=== PATIENT | female | born 1980 | race Caucasian/White ===

== ENCOUNTER 2023-08-20 04:06 | Day surgery (SDC) | payer OTHER, SELFPAY ==
[2023-08-07 15:23] VITALS: BMI 32.5
--- NOTE | 2023-08-07 15:30 | PC.NURSE ---
Report to the Outpatient Waiting Room, entrance under the green pavilion located off [facility], at time _0600_ on date _[id number]_. Planned Procedure Time: _0730_. Time changes happen often and if your time is changed the preop area will call you the afternoon before. - You and your visitor will be asked to self-screen and do not enter if you have any COVID symptoms. - A mask is optional within the hospital at this time. Patients may have clear liquids (water, carbonated beverages, clear teas, apple juice) until 3 hours prior to surgery with a maximum of 20 ounces. - No food from midnight until time of surgery Take the following medications with a SIP of water the morning of surgery: __Bupropion DO NOT STOP ANY OF YOUR OTHER PRESCRIPTION MEDICATIONS PRIOR TO SURGERY ?EXCEPT THE FOLLOWING Medications to discontinue per physician Calcium and Magnesium Date to take last rqsl___14-19-2023 Please no make-up, nail gibraltarian, hairspray, perfume, deodorant, or body powder the day of surgery. No jewelry (including any body piercings) or valuables the day of surgery, leave them at home. Please take a shower or bath the night before, or the morning of, surgery with an antibacterial soap. Wear comfortable, loose fitting clothing. - Jewelry must be removed prior to entering the operating room. Rings and piercings that are not removed may be cut off. - The hospital will not accept responsibility for valuables. - Please leave all valuables, including medications, at home the day of surgery. If you are going home after surgery, a licensed electric pile driver operator must drive you home. - NO public transportation without another adult if you receive anesthesia. - We recommend that an adult stay with you for 24 hours following discharge. - We also recommend that you do not drive, make important decision, drink alcoholic beverages, or take any drugs that were not prescribed by your health care provider for at least 24 hours after your discharge time. Follow any additional instructions given to you from your surgeon. If you or anyone in your household have experienced Covid symptoms in the past week, please notify your surgeon or the nurse liaison at the phone number below for possible testing. Telephone instructions given to __Niki__and asked if any additional questions and then verbalized understanding. Patient advised to call surgeon office or pre surgery nurse liaison [phone] if any additional questions.
[2023-08-20] VITALS (9 sets, daily range): BP systolic 109–149; BP diastolic 70–100; PULSE 76–93; RESP 12–20; TEMP 36.2–36.9; O2SAT 96–100
--- NOTE | 2023-08-20 06:58 | WPDANESEPPF ---
Anes - Initial Pre Proc Eval Procedure: Operation Date: 08/20/23 07:30 Proposed Procedures p Left Ear Tympanoplasty - River Johnson MD Date/Time: 08/20/23 06:58 Surgeon: River Johnson MD Pre Op Diagnosis: Left Ear Tympanic Membrane Perforation Patient Data Age: 43 Gender: F Height: 1.83 m Weight: 109 kg Allergies Allergy/AdvReac Type Severity Reaction Status Date / Time No Known Allergies Allergy Verified 08/07/23 15:20 Home Medications Medication Instructions Recorded Confirmed Type bupropion HCl 150 mg 24 hr tablet, 150 mg PO DAILY 08/07/23 08/07/23 History extended release calcium 500 mg tablet 500 mg PO DAILY 08/07/23 08/07/23 History levonorgestrel 0.15 mg-ethinyl 1 tablet PO HS 08/07/23 08/07/23 History estradiol 30 mcg tablets,3 mos pack(91) (Gauri) magnesium 250 mg tablet 500 mg PO HS 08/07/23 08/07/23 History trazodone 50 mg tablet 50 mg PO HS 08/07/23 08/07/23 History Patient hx anesthesia problems: none Family hx anesthesia problems: none Results Review: All pre-operative results and documents have been reviewed as part of the pre-operative evaluation. [facility] Social History Social History Smoking status: Never smoker Living arrangements: with family Spiritual care concerns: No Anes - Eval Final PreProcedure Day of Procedure 08/20/23 06:58 Patient weight: obese Heart: regular rate and rhythm Lungs: clear to auscultation Airway: Mallampati scale class II Neurological: alert and oriented Last oral intake: >/= 8 hours ASA classification: II Emergent: no Anesthetic plan: proceed Anesthesia type and monitoring: general LMA and standard monitoring Results Review: All pre-operative results and documents have been reviewed as part of the pre-operative evaluation. Informed Consent: The patient's anesthetic plan and its attendant risks and benefits were discussed with the patient/family/POA. Questions were solicited and answers provided to the satisfaction of the patient/family/POA.
[2023-08-20] MEDS: LACTATED RINGERS 1,000 ML 30 ML IV CONT (07:00)
--- NOTE | 2023-08-20 07:10 | P.HP_ITS ---
H&P: HPI History of Present Illness Date/Time: 08/20/23 07:10 Chief Complaint: left TM perforation Review of Systems Review of Systems: All systems reviewed & are unremarkable except as noted in HPI and below PMFSH Social History Social History Smoking status: Never smoker Living arrangements: with family Spiritual care concerns: No Meds Home Medications and Allergies Home Medications Medication Instructions Recorded Confirmed Type bupropion HCl 150 mg 24 hr tablet, 150 mg PO DAILY 08/07/23 08/07/23 History extended release calcium 500 mg tablet 500 mg PO DAILY 08/07/23 08/07/23 History levonorgestrel 0.15 mg-ethinyl 1 tablet PO HS 08/07/23 08/07/23 History estradiol 30 mcg tablets,3 mos pack(91) (Gauri) magnesium 250 mg tablet 500 mg PO HS 08/07/23 08/07/23 History trazodone 50 mg tablet 50 mg PO HS 08/07/23 08/07/23 History Allergies Allergy/AdvReac Type Severity Reaction Status Date / Time No Known Allergies Allergy Verified 08/07/23 15:20 Exam Narrative: left 25-30% central TM perforation, no infection, right TM intact, rest of exam wnl Assessment and Plan Assessment and plan (1) Perforation of left tympanic membrane: Code(s): H72.92 - Unspecified perforation of tympanic membrane, left ear Status: Acute Plan Marysol has a left tympanic membrane perforation, here for medial graft ty mpanoplasty. Left ear marked, all questions answered, r/b/a reviewed. She understand and agrees to proceed. refer to outpt H&p for additional detail.
--- NOTE | 2023-08-20 07:13 | WPDHPUPDATE1 ---
History and Physical Update Update Date/Time: 08/20/23 07:13 History and Physical has been reviewed, including an updated exam of the patient. There are NO changes in the patient's condition. Risks, benefits, and alternatives have been discussed and questions answered. Patient agrees to proceed with procedure.
[2023-08-20] MEDS: ceFAZolin 2 GM/D5W 50 ML 2 GM/50 ML BAG IVPB (07:25)
[2023-08-20] MEDS: EPINEPHrine HCL INJ 1 MG/ML AMPUL IRRIGATION (07:49)
[2023-08-20] MEDS: LIDO 1%/EPINEPHRINE 1:100,000 50 ML VIAL 25 ML INFILTRATE (07:50)
[2023-08-20] MEDS: CIPROFLOXACIN HCL 0.3% OP SOLN 2.5 ML BTL 4 DROP LEFT EAR (08:26)
[2023-08-20] MEDS: MUPIROCIN 2% OINT 22 GM TUBE 1 APPLIC TOPICAL (09:01)
--- NOTE | 2023-08-20 09:18 | P.OP_ITS ---
Procedure Note - Detailed Date of Procedure 08/20/23 Pre-op Diagnosis Left Ear Tympanic Membrane Perforation Post-op Diagnosis Same Procedure Performed Left tympanoplasty with medial graft from temporalis fascia Surgeon River Johnson MD Anesthesia General Indications Left TM perforation Findings Central 25% left TM perforation, harvested fascia postauricularly. Transcanal approach. Description of Procedure On the date of surgery, the patient was identified in the preoperative holding area.? The left ear was marked indicating the correct side of surgery.? They consented to surgery and was brought back to the operating room and placed under general anesthesia.? A timeout was performed verifying the correct patient identity and procedure to be performed.? The bed was rotated 180 degrees and a small amount of hair was trimmed from the postauricular area.? They were then prepped and draped in standard fashion for left sided tympanoplasty. Attention first was directed through the ear canal.? Cerumen was removed under binocular microscopy and the perforation was examined and found to be 25% of the size of the tympanic membrane.? The middle ear space was dry.? The edges of the perforation were freshened using a marley pick and microcup forceps.? Next, a 4 quadrant injection was performed with 1% lidocaine with 1:100k epinephrine.? The postauricular sulcus was also injected.? Using an angled and straight [place] blade, a vascular strip was elevated and tympanomeatal flap incisions were made.? The tympanomeatal flap was then elevated partially and a cotton ball soaked in 1:1000 epinephrine diluted with 10cc of saline was placed in the canal. Next, attention was directed behind the ear.? An incision was made in the post- auricular sulcus.? Using bovie electrocautery, dissection was performed through the subcutaneous tissues down to the level of the fascia.? The temporalis fascia was then identified and dissected free superficially and deep.? A 15 blade was used to incise through the fascia and then was elevated.? A 2x2cm window of fascia was then harvested, flattened on a ninoska block and then placed in a graft press for 5 minutes, then opened to dry. While the graft was prepared, the tympanomeatal flap was elevated and the annulus was lifted out of the annular groove.? The middle ear space was entered with a pick and the annulus was fully elevated out of the groove and the tympa nomeatal flap was completely elevated.? Several small pieces of gelfoam were placed in the middle ear space.? Next, the graft was? placed in the canal and in the middle ear space medial to the wrangell tympanic membrane.? Some manipulation allowed it to cover the entire perforation.? Gelfoam was then packed in the middle ear space further to bulk out the graft.? Once satisfied with the positioning covering the entire perforation, the tympanomeatal flap and graft were laid down.? The ear canal was further packed with gelfoam to the cartilaginous meatus.? The postauricular incision was then closed with 3-0 vicryl, 4-0 monocryl and dermabond in a layered fashion.? The canal was filled with mupirocin ointment and a cotton ball was placed in the meatus.? The drapes were taken down and care of the patient was returned to anesthesia who woke them up in the OR and transferred to the PACU for recovery in stable condition without complication. Estimated Blood Loss 1 Drains No Packing Yes (gelfoam) Pathology None sent Complications No immediate complications Condition Stable Disposition PACU
--- NOTE | 2023-08-20 09:39 | SUR.PHASEI ---
0938: Simple mask removed.
== END 2023-08-20 10:50 | disposition home or self-care (01) ==
PROVIDERS: Visit Provider Otolaryngology
PROC: (CPT 69610; principal; 2023-08-20 07:30)
DX: H72.92 Unspecified perforation of tympanic membrane, left ear (principal); E66.9 Obesity, unspecified; Z68.31 Body mass index [BMI] 31.0-31.9, adult
CPT/HCPCS: 69610; 15769; A9270; J0171; J0690; J1100; J1200; J2250; J2405; J2704; J3010; J7120